=== PATIENT | female | born 1990 | race Asian ===

== ENCOUNTER 2022-11-06 04:14 | Emergency (ER) | payer SELFPAY ==
[2022-11-06] MEDS ORDERED: Sodium Chloride 0.9% 10 ML Syringe FLUSH PRN (04:38)
[2022-11-06] MEDS ORDERED: Sodium Chloride 0.9% 2.5 ML Syringe FLUSH PRN (04:38)
[2022-11-06] MEDS ORDERED: Sodium Chloride 0.9% 1,000 ML IV ONE (04:38)
[2022-11-06] MEDS ORDERED: Sodium Chloride 0.9% 20 ML SDV IV PRN (04:38)
[2022-11-06] MEDS ORDERED: Aspirin 81 MG Tab.Chew PO ONE (04:38)
[2022-11-06] MEDS ORDERED: Ketorolac 30 MG/ML SDV IVPUSH ONE (04:40)
[2022-11-06 05:14] LABS: CORONAVIRUS COVID-19 NAA NEGATIVE (NEGATIVE); INFLUENZA A NAA NEGATIVE (NEGATIVE); INFLUENZA B NAA NEGATIVE (NEGATIVE)
[2022-11-06 05:52] LABS: BASOPHILS PERCENT AUTO 0.4 % (0.0-1.5); EOSINOPHILS ABSOLUTE AUTO 0.6 K/uL (0.0-0.7); EOSINOPHILS PERCENT AUTO 7.7 % (0.0-7.0); HEMATOCRIT 41.9 % (36.0-46.0); LYMPHOCYTES ABSOLUTE AUTO 2.9 K/uL (0.6-2.4); LYMPHOCYTES PERCENT AUTO 37.6 % (16.0-40.0); MEAN CORPUSCULAR HEMOGLOBIN 33.4 pg (27.0-32.0); MEAN CORPUSCULAR HGB CONC 33.4 g/dL (31.0-37.0); MONOCYTES ABSOLUTE AUTO 0.7 K/uL (0.0-0.8); NEUTROPHILS ABSOLUTE AUTO 3.5 K/uL (1.4-5.7); NEUTROPHILS PERCENT AUTO 45.3 % (48.0-80.0); NRBC ABSOLUTE 0 K/uL; PLATELET COUNT,PLT 242 K/uL (150-400); RED BLOOD CELL COUNT 4.19 M/uL (4.30-5.90)
[2022-11-06] MEDS ORDERED: Diazepam 2 MG Tab PO ONE (06:02)
[2022-11-06 06:14] LABS: A/G RATIO 1.1 (0.9-1.6); ALBUMIN 3.7 g/dL (3.4-5.0); BILIRUBIN TOTAL 0.7 mg/dL (0.2-1.0); CALCIUM 8.7 mg/dL (8.5-10.1); CARBON DIOXIDE,CO2 27.4 mmol/L (21.0-32.0); CREATININE 0.8 mg/dL (0.6-1.0); EST CRCL DRUG DOSING (CG) 88.79 mL/min; POTASSIUM,K 3.6 mmol/L (3.5-5.1)
== END 2022-11-06 06:34 | disposition home or self-care (01) ==
LOC: MW.ED 04:14
DX: R09.1 Pleurisy (principal); R05.9 Cough, unspecified; Z20.822 Contact with and (suspected) exposure to COVID-19
CPT/HCPCS: 0240U; 36415; 71045; 80053; 81025; 83690; 84484; 85025; 85379; 93005; 96361; 96374; 99284; A9270; J1885; J3490; J7050